=== PATIENT | male | born 1965 | race Caucasian/White ===

== ENCOUNTER 2016-07-10 10:03 | Outpatient (CLI) | payer OTHER ==
--- NOTE | 2016-07-10 13:34 | RAD ---
LEFT HIP: Two views obtained. HISTORY: Hip pain. FINDINGS/IMPRESSION: There is loss of femoral head contour. Abnormal areas of sclerosis and cystic change seen in the fe moral head, especially along the superior aspect. There is loss of joint space and there are hypert rophic degenerative changes from the femoral head and acetabulum. Changes from the femoral head wou ld suggest changes of avascular necrosis with secondary degenerative change at the left hip. POS: [facility]
--- NOTE | 2016-07-10 13:34 | RAD ---
RIGHT HIP TWO VIEWS: History: Right hip pain. FINDINGS: Femoral head contour is less than well maintained. There is loss of joint space. Hypertrophic spurri ng from the femoral head and acetabulum. Abnormal cystic and sclerotic changes within the femoral he ad are seen. IMPRESSION: 1. 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 2. Consider MRI of hips for better characterization of the hip findings. MRI could better define and confirm avascular necrosis. POS: [facility]
== END 2016-07-10 10:04 | disposition home or self-care (01) ==
LOC: MADRAD 10:03
PROVIDERS: ATTEND General Practice
DX: M25.551 Pain in right hip (principal); M25.552 Pain in left hip

== ENCOUNTER 2018-01-10 14:45 | Emergency (ER) | payer BC, SELFPAY ==
[2018-01-10] MEDS ORDERED: Famotidine In NaCl 20 mg/50 ml Premix Bag ONE (15:05)
[2018-01-10] MEDS ORDERED: diphenhydrAMINE 50 MG/ML VIAL ONE (15:05)
== END 2018-01-10 18:15 | disposition home or self-care (01) ==
LOC: MADERS 14:45
DX: T78.2XXA Anaphylactic shock, unspecified, initial encounter (principal); T63.441A Toxic effect of venom of bees, accidental (unintentional), initial encounter
CPT/HCPCS: 96374; 96375; J1200